=== PATIENT | male | born 1965 | race Caucasian/White ===

== ENCOUNTER 2020-06-28 04:53 | Emergency (ER) | payer BC ==
[~2020-06-28 04:53] MED LIST: ASPIRIN EC81 MG PO; CIPRO500 MG PO; CIPRODEX OTIC7.5 ML EARRT; CLARITIN10 MG PO; FISH OIL 1,0001 EACH PO; FLONASE 0.05% N16 GM; GLIPIZIDE5 MG PO; HYDRALAZINE HCL25 MG PO; METFORMIN HCL1000 MG PO; METOPROLOL SUCC50 MG PO; METOPROLOL TART25 MG PO; NORCO 5-325 TA1 EACH PO; PRAVASTATIN SOD40 MG PO; PROSCAR 5 MG TAB5 MG PO; TAMSULOSIN HCL0.4 MG PO; ZYRTEC10 MG PO
[2020-06-28 06:19] LABS: HEMOGLOBIN 14.2 gm/dl (14.0-17.5); RED BLOOD COUNT 4.52 M/UL (4.20-5.50); WHITE BLOOD COUNT 8.9 K/UL (4.5-11.0)
[2020-06-28 06:34] LABS: BUN/CREATININE RATIO 18 (0-10)
[2020-06-28] MEDS ORDERED: PERCOCET 5-3251 EACH PO (08:44)
[2020-06-28] MEDS ORDERED: ZOFRAN ODT 4 MG4 MG PO (08:44)
[2020-07-06] MEDS ORDERED: GLUCOTROL 10 MG10 MG PO (10:45)
[2020-07-06] MEDS ORDERED: FLOMAX 0.4 MG0.4 MG PO (10:45)
[2020-07-06] MEDS ORDERED: JANUVIA50 MG PO (10:46)
[2020-07-06] MEDS ORDERED: PERCOCET 5/325 T1 EA PO (10:47)
[2020-07-06] MEDS ORDERED: ONDANSETRON HCL4 MG PO (10:47)
== END 2020-06-28 09:00 | disposition home or self-care (01) ==
LOC: ER1 04:53
PROVIDERS: Student in an Organized Health Care Education/Training Program
DX: N13.2 Hydronephrosis with renal and ureteral calculous obstruction (principal); E11.9 Type 2 diabetes mellitus without complications; I10 Essential (primary) hypertension
CPT/HCPCS: 72131; 80053; 81001; 82550; 82553; 83605; 85025; 96374; 96375; 99284; J0696; J1885; J2270; J2405

== ENCOUNTER → 2020-06-29 | Outpatient (CLI) | payer BC ==
[~2020-06-29] MED LIST changes: +FLOMAX 0.4 MG0.4 MG PO; +GLUCOTROL 10 MG10 MG PO; +JANUVIA50 MG PO; +ONDANSETRON HCL4 MG PO; +PERCOCET 5-3251 EACH PO; +PERCOCET 5/325 T1 EA PO; +ZOFRAN ODT 4 MG4 MG PO
== END ==
LOC: EXRD 10:55
DX: N20.0 Calculus of kidney (principal)
CPT/HCPCS: 74018

== ENCOUNTER → 2020-07-06 | Outpatient (CLI) | payer BC ==
[2020-07-06 11:06] LABS: BUN/CREATININE RATIO 13 (0-10)
== END ==
LOC: OPSV2 09:30
PROVIDERS: Anesthesiology
DX: Z01.818 Encounter for other preprocedural examination (principal)
CPT/HCPCS: 36415; 80048; 93005

== ENCOUNTER → 2020-07-09 | Day surgery (SDC) | payer BC | END | disposition home or self-care (01) | LOC: OR 09:03 | DX: N20.0 Calculus of kidney (principal); N40.0 Benign prostatic hyperplasia without lower urinary tract symptoms; I25.10 Atherosclerotic heart disease of native coronary artery without angina pectoris; E11.9 Type 2 diabetes mellitus without complications; I10 Essential (primary) hypertension; E78.5 Hyperlipidemia, unspecified; M19.90 Unspecified osteoarthritis, unspecified site; F17.210 Nicotine dependence, cigarettes, uncomplicated; E66.9 Obesity, unspecified; Z68.29 Body mass index [BMI] 29.0-29.9, adult; Z79.82 Long term (current) use of aspirin; Z79.84 Long term (current) use of oral hypoglycemic drugs; Z79.891 Long term (current) use of opiate analgesic; Z79.899 Other long term (current) drug therapy | CPT/HCPCS: 82962; C1769; C2617; J1100; J1956; J2250; J2405; J2704; J3010; J7030; J7120 ==

== ENCOUNTER → 2020-07-28 | Outpatient (CLI) | payer BC | LOC: HEART 5 07:49 | DX: I47.2 Ventricular tachycardia (principal); I10 Essential (primary) hypertension | CPT/HCPCS: 78452; A9502; J2785 ==

== ENCOUNTER 2021-09-18 09:30 | Emergency (ER) | payer BC ==
[2021-09-18] MEDS ORDERED: BACTRIM DS TAB1 EACH PO (10:13)
[2021-09-18] MEDS ORDERED: CEPHALEXIN500 M1 PO (10:13)
== END 2021-09-18 10:22 | disposition home or self-care (01) ==
LOC: ER1 09:30
DX: L03.317 Cellulitis of buttock (principal); L91.8 Other hypertrophic disorders of the skin; E11.9 Type 2 diabetes mellitus without complications; E78.5 Hyperlipidemia, unspecified; F17.210 Nicotine dependence, cigarettes, uncomplicated
CPT/HCPCS: 99283